=== PATIENT | male | born 1965 | race Caucasian/White ===

== ENCOUNTER 2024-02-21 20:37 | Emergency (ER) | payer OTHER, SELFPAY ==
[2024-02-21 20:42] VITALS: BP 148/99
[2024-02-21 21:04] LABS: % Basophils 0.9 % (0-2); % Eosinophils 0.6 % (0-6); % Immature Granulocytes 0.3 % (0-0.5); % Lymphocytes 26.9 % (20.5-51.1); % Monocytes 9.7 % (1.7-9.3); % Neutrophils 61.6 % (42.2-75.2); Absolute Basophils 0.1 10^3/uL (0-0.2); Absolute Lymphocytes 1.8 10^3/uL (1.2-3.4); Absolute Monocytes 0.6 10^3/uL (0.1-0.6); Absolute Neutrophils 4.1 10^3/uL (1.4-6.5); Hematocrit 45.5 % (39.0-52.0); Hemoglobin 15.7 g/dL (13.0-18.0); Mean Corp Hgb Conc. 34.5 g/dL (33.0-37.0); Mean Corpuscular Hgb 33.6 pg (27.0-31.0); Mean Corpuscular Volume 97.4 fL (80.0-94.0); Mean Platelet Volume 10.4 fL (7.4-10.4); Nucleated Red Blood Cells % 0 % (-); Platelet Count 189 10^3/uL (130-400); Red Blood Cell Count 4.67 10^6/uL (4.70-6.10); Red Cell Dist. Width 13.1 % (11.5-14.5); White Blood Cell Count 6.6 10^3/uL (4.8-10.8)
[2024-02-21 21:21] LABS: Alcohol 70 mg/dl; Blood Urea Nitrogen 11 mg/dl (9-20); Calcium 9.8 mg/dl (8.4-10.2); Carbon Dioxide 22 mmol/L (22-30); Chloride 105 mmol/L (98-107); Glucose 97 mg/dl (70-99); Sodium 137 mmol/L (135-145); eGFR > 60.00
--- NOTE | 2024-02-21 22:23 | ED.GENMED ---
History of Present Illness
General
Chief Complaint: Psychiatric Problem
Source: patient
Exam Limitations: none
Time Seen by Provider: 02/21/24 20:41
Nursing documentation reviewed up to this point in time: agreed with
Travel History
Have you had any contact with someone who has COVID-19?: Unable to Answer
Do you have any symptoms of coronavirus? Fever > 100 degrees, chills, cough, shortness of breath, sore throat, loss of taste or smell, muscle aches, or headache?: Unable to Answer
History of Present Illness
History of Present Illness:
Patient presents to ED for medical evaluation after 302 petition was filed by police officers, shortly prior to arrival. Upon arrival, patient is alert and awake, but expressing tangential thoughts. Patient denies suicidal or homicidal ideation.
Patient was found with gun in his possession, when police officers arrived, which was taken away by the police officers. Patient had originally called 911, stating that someone in his household had been shot.
Review of Systems
Review of Systems
Allergies reviewed?: Yes
All Other Systems: ROS reviewed and negative except as documented in HPI and ROS
Constitutional: Reports no symptoms
Respiratory: Reports no symptoms
Cardiac: Reports no symptoms
ABD/GI: Reports no symptoms
Skin: Reports no symptoms
Neurological: Reports no symptoms
Psychiatric: Denies suicidal
Phy Exam
Physical Exam
Physical Exam:
Physical Exam
General: no apparent distress, not acutely ill. afebrile.
Head: nc/at. eomi
Neck: supple. normal range of motion.
Abdomen: normal bowel sounds. not tender.
Neuro: alert and oriented. no focal neurological deficits
Skin: no rash
Psychiatric: well kept. interactive and cooperative
Extremities: no edema. no calf tenderness.
Course
Orders/Labs/Results
Orders:
Orders
02/21/24 20:42
Crisis Consult Urgent
Reason for Consult: pt here on 302
02/21/24 20:54
Alcohol Urgent
Basic Metabolic Panel Urgent
Complete Blood Count/With Diff Urgent
02/21/24 22:39
Urinalysis Reflex To Culture Urgent
Date Specimen was Collected: 02/21/24
Time Specimen was Collected: 22:36
Urine Drug Abuse Screen Urgent
Date Specimen was Collected: 02/21/24
Time Specimen was Collected: 22:37
02/22/24 00:03
Acetaminophen [Tylenol] 1,000 mg PO NOW STA
02/22/24 00:04
Acetaminophen [Tylenol] 1,000 mg .ROUTE .STK-MED ONE
Abnormal Lab Results
02/21/24
20:54
RBC 4.67 L 10^6/uL
(4.70-6.10)
MCV 97.4 H fL
(80.0-94.0)
MCH 33.6 H pg
(27.0-31.0)
Monocytes % 9.7 H %
(1.7-9.3)
02/21/24 20:54
02/21/24 20:54
Vital Signs
Initial and Last Documented VS:
Initial Vital Signs
Temp Pulse Resp BP Pulse Ox
98.6 F 87 18 148/99 98
02/21/24 20:42 02/21/24 20:42 02/21/24 20:42 02/21/24 20:42 02/21/24 20:42
Last Documented Vital Signs
Temp Pulse Resp BP Pulse Ox
98.1 F 78 16 126/75 98
02/22/24 10:43 02/22/24 10:43 02/22/24 10:43 02/22/24 10:43 02/22/24 10:43
MDM/Problems Addressed
MDM/Problems Addressed:
Pt medically cleared, awaiting evaluation by tele-psychiatry.
*Critical Care Note
Total Time (30-74mins, 75-104mins- exclusive of procedures): Not Applicable
ED Attending Note
-
Portions of this chart may have been created with voice recognition software.� Occasional wrong word or��sound alike� substitutions may have occurred due to the inherent limitations of voice recognition software.
Discharge Plan
Departure
Patient Disposition: Psych Facility
Date of Disposition: 02/22/24
Time of Disposition: 03:16
Discharge Problem:
Psychosis
Prescriptions:
No Action
.Allergy Pill Otc
1 tab PO PRN PRN (Reason: allergy )
lisinopril 20 mg Tablet
20 mg PO DAILY
simvastatin 20 mg Tablet
20 mg PO DAILY
fluticasone propion-salmeterol [Advair Diskus] 250-50 mcg/dose Blister With Device
1 inh INHALATION BID PRN (Reason: asthma symptoms)
Referrals:
UNKNOWN - PT NOT,INTERVIEWE [Family Provider] -
Interventions
Interventions:
*Risk Screen - Suicide Last Done: 02/21/24 20:56
*General Assessment Last Done: 02/21/24 20:42
*Neglect/Abuse Screening Last Done: 02/21/24 20:42
ED- Fall Risk Assessment Last Done: 02/21/24 22:12
*ED COVID-19 Vaccine History Last Done: 02/21/24 20:42
*Nursing Disposition Last Done: 02/22/24 10:43
ED-Psychological Assessment Last Done: 02/21/24 20:50
Discharge Date and Time
Discharge Date/Time: 02/22/24 10:44
Print Language: GERMAN
[2024-02-21 22:49] LABS: Urine Albumin Negative (Neg - Trace); Urine Bilirubin Negative (Negative); Urine Character Clear (Clear); Urine Color Yellow; Urine Glucose Negative (Negative); Urine Ketone Negative (Negative); Urine Leukocyte Negative (Negative); Urine Nitrite Negative (Negative); Urine Occult Blood Negative (Negative); Urine Specific Gravity 1.015 (<1.030); Urine Urobilinogen Negative (Neg - 1+)
[2024-02-21 22:56] LABS: Amphetamines Negative (Negative); Barbiturates Negative (Negative); Benzodiazepines Negative (Negative); Buprenorphine Negative (Negative); Cocaine Negative (Negative); Marijuana Negative (Negative); Methadone Negative (Negative); Methamphetamines Negative (Negative); Opiates Negative (Negative); Phencyclidine Negative (Negative); Tricyclic Antidepressants Negative (Negative)
[2024-02-22] MEDS: TYLENOL 1000 MG PO (00:06)
[2024-02-22 00:40] VITALS: BP 155/108
[2024-02-22 03:55] VITALS: BP 154/94
[2024-02-22 10:43] VITALS: BP 126/75
== END 2024-02-22 10:44 ==
LOC: EMR 20:37
PROVIDERS: EMERGENCY PHYSICIAN Emergency Medicine
DX: F29 Unspecified psychosis not due to a substance or known physiological condition (principal); Z02.79 Encounter for issue of other medical certificate; Z65.3 Problems related to other legal circumstances; I10 Essential (primary) hypertension; E78.5 Hyperlipidemia, unspecified; F41.9 Anxiety disorder, unspecified; J45.909 Unspecified asthma, uncomplicated
CPT/HCPCS: 99285; 80048; 80306; 81003; 82077; 85025

== ENCOUNTER 2025-07-20 12:57 | Emergency (ER) | payer BC, SELFPAY ==
[2025-07-20 12:59] VITALS: BP 188/112
[2025-07-20 13:23] LABS: Hematocrit 44.1 % (39.0-52.0); Hemoglobin 15.4 g/dL (13.0-18.0); Mean Corp Hgb Conc. 34.9 g/dL (33.0-37.0); Mean Corpuscular Volume 95.9 fL (80.0-94.0); Nucleated Red Blood Cells % 0 % (-); Platelet Count 207 10^3/uL (130-400); Red Cell Dist. Width 12.9 % (11.5-14.5)
[2025-07-20 13:31] LABS: ALT (SGPT) 20 U/L (0-50); AST (SGOT) 29 U/L (17-59); Albumin 5.0 g/dl (3.5-5.0); Alkaline Phosphatase 66 U/L (38-126); Blood Urea Nitrogen 14 mg/dl (9-20); Calcium 9.3 mg/dl (8.4-10.2); Carbon Dioxide 20 mmol/L (22-30); Chloride 104 mmol/L (98-107); Glucose 125 mg/dl (70-99); Potassium 4.3 mmol/L (3.5-5.1); Sodium 135 mmol/L (135-145); Total Protein 7.8 g/dl (6.3-8.2); eGFR > 60.00
--- NOTE | 2025-07-20 17:09 | ED.GENMED ---
History of Present Illness
General
Chief Complaint: Dizziness
Source: patient
Exam Limitations: none
Time Seen by Provider: 07/20/25 16:34
Nursing documentation reviewed up to this point in time: agreed with
History of Present Illness
History of Present Illness:
Patient to ED after having an anxiety attack. He was let go from his job today. ON interview he is anxious, rambling, rapid speech,jittery. Requesting Xanax.
Past History
Past History
ED Past Medical History: HTN, Hypercholesterolemia and Psychiatric (anxiety)
Review of Systems
Review of Systems
Allergies reviewed?: Yes
All Other Systems: ROS reviewed and negative except as documented in HPI and ROS
Constitutional: Reports no symptoms
EENT: Reports no symptoms
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
Cardiac: Reports chest pain (FABRICATION AND ASSEMBLY SUPERVISOR)
ABD/GI: Reports no symptoms
: Reports no symptoms
Musculoskeletal: Reports no symptoms
Skin: Reports no symptoms
Neurological: Reports dizzy (FABRICATION AND ASSEMBLY SUPERVISOR)
Psychiatric: Reports anxiety
Phy Exam
General Physical Exam
General Presentation: well appearing
General age: appears stated age
General Skin: warm and dry
General Habitus: normal
General Mental: alert
Cardiovascular Exam
Cardiovascular Exam: regular rate/rhythm and no edema
Neurological Exam
Neurological Exam: alert and oriented x3
Musculoskeletal Exam
Musculoskeletal Exam: full ROM
Skin Exam
Skin Exam: normal color, warm/dry and no rash
Psychiatric Exam
Psychiatric Exam: anxious
Course
Orders/Labs/Results
Orders:
Orders
07/20/25 12:59
EKG [Electrocardiogram (*1)] Urgent
Reason for Study: Chest Pain
07/20/25 13:00
EKG- Treatment ONCE
07/20/25 13:08
CBC/With Diff [Complete Blood Count/With Diff] Urgent
CMP [Comprehensive Metabolic Panel] Urgent
07/20/25 17:09
Crisis Consult Urgent
Reason for Consult: cain
Abnormal Lab Results
07/20/25
13:08
RBC 4.60 L 10^6/uL
(4.70-6.10)
MCV 95.9 H fL
(80.0-94.0)
MCH 33.5 H pg
(27.0-31.0)
Absolute Neuts (auto) 6.8 H 10^3/uL
(1.4-6.5)
Absolute Monos (auto) 0.8 H 10^3/uL
(0.1-0.6)
Lymphocytes % 18.5 L %
(20.5-51.1)
Carbon Dioxide 20 L mmol/L
(22-30)
Glucose 125 H mg/dl
(70-99)
07/20/25 13:08
07/20/25 13:08
Vital Signs
Initial and Last Documented VS:
Initial Vital Signs
Temp Pulse Resp BP Pulse Ox
97.9 F 114 15 188/112 98
07/20/25 12:59 07/20/25 12:59 07/20/25 12:59 07/20/25 12:59 07/20/25 12:59
Last Documented Vital Signs
Temp Pulse Resp BP Pulse Ox
99.5 F 105 16 177/99 100
07/20/25 17:20 07/20/25 17:20 07/20/25 17:20 07/20/25 17:20 07/20/25 17:20
*Pulse Oximetry
SaO2: 98
Oxygen Mode of Delivery: Room air
Patient hypoxic: no
*Critical Care Note
Total Time (30-74mins, 75-104mins- exclusive of procedures): Not Applicable
Update Note
Update Note:
Patient to ED after an anxiety attack. He was let go from his job today. Difficult to interview him. He is speaking fast and his conversation is jumbled. He speaks about relationships in the past, his job history/resume, dating services, money.
His symptoms of dizziness, chest pain, SOB have resolved. Requesting a prescription for xanax. Crisis called to see patient.
Crisis consult completed. He is not a threat to self or others. He is aware of his rapid speech, figitiness. Crisis has cleared him for discharge home He was given rx for 5 tabs xanax and will follow up with his PCP tomorrow.
ED Attending Note
-
Portions of this chart may have been created with voice recognition software.� Occasional wrong word or��sound alike� substitutions may have occurred due to the inherent limitations of voice recognition software.
Discharge Plan
Departure
Patient Disposition: Home (Routine Discharge)
Date of Disposition: 07/20/25
Time of Disposition: 17:37
Patient with high blood pressure during this ER visit?: No
Condition: Good
Covid-19: Not Applicable
Discharge Problem:
Panic attack
Prescriptions:
New
alprazolam [Xanax] 0.5 mg tablet
0.5 mg PO TID PRN (Reason: anxiety) Qty: 5 0RF
No Action
.Allergy Pill Otc
1 tab PO PRN PRN (Reason: allergy )
lisinopril 20 mg Tablet
20 mg PO DAILY
simvastatin 20 mg Tablet
20 mg PO DAILY
fluticasone propion-salmeterol [Advair Diskus] 250-50 mcg/dose Blister With Device
1 inh INHALATION BID PRN (Reason: asthma symptoms)
Referrals:
Yeyo Goodman PA-C [Family Provider, Family Practice] - Tomorrow
Interventions
Interventions:
*Risk Screen - Suicide Last Done: 07/20/25 12:59
*General Assessment Last Done: 07/20/25 12:59
*Neglect/Abuse Screening Last Done: 07/20/25 12:59
*ED- Fall Risk Assessment Last Done: 07/20/25 18:00
*ED COVID-19 Vaccine History Last Done: 07/20/25 12:59
*Nursing Disposition Last Done: 07/20/25 18:00
ED- Neurological Assessment Last Done: 07/20/25 17:23
Discharge Date and Time
Discharge Date/Time: 07/20/25 18:01
Print Language: ROMANSH
[2025-07-20 17:20] VITALS: BP 177/99; BMI 28.1
== END 2025-07-20 18:01 | disposition home or self-care (01) ==
LOC: EMR 12:57
PROVIDERS: Emergency Medicine; EMERGENCY PHYSICIAN Emergency Medicine; FAMILY PHYSICIAN Physician Assistant Medical
DX: F41.0 Panic disorder [episodic paroxysmal anxiety] (principal); F41.9 Anxiety disorder, unspecified; I10 Essential (primary) hypertension; E78.00 Pure hypercholesterolemia, unspecified; Z56.0 Unemployment, unspecified
CPT/HCPCS: 99284; 80053; 85025; 93005

== ENCOUNTER 2025-09-20 15:49 | Emergency (ER) | payer OTHER, SELFPAY ==
[2025-09-20 15:54] VITALS: BP 163/97
--- NOTE | 2025-09-20 17:08 | ED.GENMED ---
History of Present Illness
General
Chief Complaint: Head Injury
Source: patient
Exam Limitations: none
Time Seen by Provider: 09/20/25 16:51
Nursing documentation reviewed up to this point in time: agreed with
History of Present Illness
History of Present Illness:
Patient is a 6-year-old male with history of hypertension high cholesterol panic attacks alcohol abuse presents to the ER for evaluation. Patient reports he fell on Saturday and hit his head. Patient concerned that he may have a concussion. He
also has alcohol issues and reports he drank alcohol yesterday when this occurred and last took his Xanax Saturday as well.
PT is rambling having tangential thoughts. Pt is not on blood thinners. Patient reports he feels sore all over including his neck region but denies any other specific extremity injury.
Past History
Past History
ED Past Medical History: HTN, Hypercholesterolemia and Psychiatric (anxiety)
Phy Exam
General Physical Exam
General Presentation: no apparent distress
General age: appears stated age
General Skin: warm and dry
General Habitus: normal
General Mental: alert
General Hydration: appears well hydrated
Cardiovascular Exam
Cardiovascular Exam: regular rate/rhythm, no murmur and normal peripheral pulses
Neurological Exam
Neurological Exam: alert, oriented x3, no motor deficits, no sensory deficits and other (Ambulatory with a steady gait)
Jero Coma Scale
Eye Opening: Spontaneous
Verbal Response: Oriented
Motor Response: Obeys Commands
GCS Total Score: 15
Musculoskeletal Exam
Musculoskeletal Exam: full ROM and other (No bony tenderness to upper or lower extremities bilaterally full range of motion no obvious tender on exam no bony C-spine tenderness no bony midline thoracic or lumbar tenderness)
Skin Exam
Skin Exam: normal color and warm/dry
Psychiatric Exam
Psychiatric Exam: other (Tangential thoughts)
Course
Orders/Labs/Results
Orders:
Orders
09/20/25 15:[address] [CT Head W/o Iv Contrast] Urgent
Comment:
Reason For Exam: fall with head strike.
09/20/25 16:57
CT Cervical Spine W/o Iv Contr Urgent
Comment:
Reason For Exam: fall, head injury, neck pain, chronic neck pain.
09/20/25 19:28
Ibuprofen [Motrin] 600 mg PO NOW STA
Vital Signs
Initial and Last Documented VS:
Initial Vital Signs
Temp Pulse Resp BP Pulse Ox
98.1 F 101 18 163/97 97
09/20/25 15:54 09/20/25 15:54 09/20/25 15:54 09/20/25 15:54 09/20/25 15:54
Last Documented Vital Signs
Temp Pulse Resp BP Pulse Ox
98.1 F 101 18 163/97 97
09/20/25 15:54 09/20/25 15:54 09/20/25 15:54 09/20/25 15:54 09/20/25 17:12
Solar Sales Representative And Assessor consulted with Physician
Solar Sales Representative And Assessor consulted with physician?: Yes
Name of Physician Consulted: Paco
MDM/Problems Addressed
Differential Diagnosis Includes:
Not limited to head injury, contusion intracranial hemorrhage
MDM/Problems Addressed:
As documented patient is a 60-year-old male presents very manic tangential thoughts tells me he fell on Saturday landed on his back complains of headache and was concerned because he has had multiple concussions. He feels sore all over but denies
any other particular pain. He is in no acute distress. CT head is negative for acute findings. He is not on blood thinners. Incidentally CT cervical spine does show mild compression fractures of T1-T2 and T3. These are age-indeterminate. Will
have patient follow-up with orthopedics nothing further to do in the ER he was given ibuprofen. No other injuries. He is amatory with a steady gait.
*Radiology
Radiology exam reviewed: radiology read reviewed
*Pulse Oximetry
SaO2: 97
Oxygen Mode of Delivery: Room air
Patient hypoxic: no
*Critical Care Note
Total Time (30-74mins, 75-104mins- exclusive of procedures): Not Applicable
ED Attending Note
-
Portions of this chart may have been created with voice recognition software.� Occasional wrong word or��sound alike� substitutions may have occurred due to the inherent limitations of voice recognition software.
Discharge Plan
Departure
Patient Disposition: Home (Routine Discharge)
Date of Disposition: 09/20/25
Time of Disposition: 19:28
Patient with high blood pressure during this ER visit?: Yes
Condition: Fair
Covid-19: Not Applicable
Discharge Problem:
Head injury
Instructions: Head Injury in Adults (DC), Vertebral Compression Fracture ED, BLOOD PRESSURE
Prescriptions:
No Action
.Allergy Pill Otc
1 tab PO PRN PRN (Reason: allergy )
lisinopril 20 mg Tablet
20 mg PO DAILY
simvastatin 20 mg Tablet
20 mg PO DAILY
fluticasone propion-salmeterol [Advair Diskus] 250-50 mcg/dose Blister With Device
1 inh INHALATION BID PRN (Reason: asthma symptoms)
alprazolam [Xanax] 0.5 mg tablet
0.5 mg PO TID PRN (Reason: anxiety) Qty: 5 0RF
Referrals:
UNKNOWN - PT DOES,NOT KNOW [Family Provider]
Activity Restrictions/Additional Instructions:
As discussed your CAT scan of your head was negative. Please follow-up with orthopedics for reevaluation of findings on your cervical spine ct scan. Findings include mild compression fx of T1, T2 and T3 however it is uncertain how old these are.
Please call orthopedics tomorrow for an appointment in the next several days return if any worsening of symptoms. You may take ibuprofen as needed.
Interventions
Interventions:
*Risk Screen - Suicide Last Done: 09/20/25 15:54
*General Assessment Last Done: 09/20/25 15:54
*Neglect/Abuse Screening Last Done: 09/20/25 15:54
ED- Neurological Assessment Last Done: 09/20/25 18:15
ED-Skin Assessment Last Done: 09/20/25 18:15
Discharge Date and Time
Print Language: CROATIAN
[2025-09-20] MEDS: MOTRIN 600 MG PO (19:37)
[2025-09-20 19:43] VITALS: BP 166/100
== END 2025-09-20 19:44 | disposition home or self-care (01) ==
LOC: EMR 15:49
PROVIDERS: EMERGENCY PHYSICIAN Emergency Medicine
DX: S09.90XA Unspecified injury of head, initial encounter (principal); M48.54XA Collapsed vertebra, not elsewhere classified, thoracic region, initial encounter for fracture; W19.XXXA Unspecified fall, initial encounter; E78.00 Pure hypercholesterolemia, unspecified; I10 Essential (primary) hypertension
CPT/HCPCS: 99284; 70450; 72125